=== PATIENT | female | born 1935 | race American Indian/Alaskan Native ===

== ENCOUNTER 2018-12-01 09:44 | Day surgery (SDC) | payer MEDICARE ==
[~2018-12-01 09:44] MED LIST: ANCEF/STERILE WATER 2 GM/20 ML 2 GM/20 ML SYRINGE IV NR
[2018-12-01] MEDS ORDERED: MARCAINE 0.5% INFILTRATI ONE (10:22)
[2018-12-01] MEDS ORDERED: NITROGLYCERIN SYRINGE 0 ML ONE (10:23)
[2018-12-01] MEDS ORDERED: NACL 0.9% 500 ML 0 ML ONE (10:23)
[2018-12-01] MEDS ORDERED: HEPARIN 10,000 UNITS/10 ML ONE (10:23)
[2018-12-01] MEDS ORDERED: SUBLIMAZE IV PRN (10:39)
[2018-12-01] MEDS ORDERED: ZOFRAN IV PRN (10:39)
--- NOTE | 2018-12-01 10:40 | Anesthesia Day of Surgery ---
Anesthesia Day of Surgery - Day of Surgery Patient Examined: Yes Patient H&P Reviewed: Yes Patient is NPO: Yes
--- NOTE | 2018-12-01 10:48 | Anesthesia Consultation ---
Anesthesia Consult and Med Hx Date of service: 12/01/18 - Pre-Operative Health Status ASA Pre-Surgery Classification: ASA3 Proposed Anesthetic Plan: General - Pulmonary Hx Smoking: Yes (Former smoker) - Cardiovascular System Hx Hypertension: Yes - Central Nervous System Hx Psychiatric Problems: No - Endocrine Hx Renal Disease: Yes Hx End Stage Renal Disease: Yes (Last HD Thursday) - Other Systems Hx Cancer: No
[2018-12-01 10:53] LABS: Red Blood Count TNR M/mm3 (3.65-5.03)
[2018-12-01 10:54] LABS: Basophils # (Auto) TNR K/mm3 (0.0-0.1); Basophils % (Auto) TNR % (0.0-1.8); Eosinophils # (Auto) TNR K/mm3 (0.0-0.4); Eosinophils % (Auto) TNR % (0.0-4.3); Hematocrit TNR % (30.3-42.9); Hemoglobin TNR gm/dl (10.1-14.3); Lymphocytes # (Auto) TNR K/mm3 (1.2-5.4); Lymphocytes % (Auto) TNR % (13.4-35.0); Mean Corpuscular HGB Conc TNR % (30-34); Mean Corpuscular Volume TNR fl (79-97); Monocytes # (Auto) TNR K/mm3 (0.0-0.8); Monocytes % (Auto) TNR % (0.0-7.3); Platelet Count TNR K/mm3 (140-440); Red Cell Distribution Width TNR % (13.2-15.2)
[2018-12-01] MEDS ORDERED: NACL 0.9% 1000 ML 1,000 ML IV SCH (11:00)
[2018-12-01 11:01] LABS: Calcium 9.7 mg/dL (8.4-10.2)
[2018-12-01 12:39] VITALS: BP 137/53
== END 2018-12-01 09:45 | disposition home or self-care (01) ==
LOC: OR 09:44
PROVIDERS: ATTEND Surgery Vascular Surgery
DX: T82.590A Other mechanical complication of surgically created arteriovenous fistula, initial encounter (principal); I12.0 Hypertensive chronic kidney disease with stage 5 chronic kidney disease or end stage renal disease; N18.6 End stage renal disease; Z53.8 Procedure and treatment not carried out for other reasons; Z79.82 Long term (current) use of aspirin; Z87.891 Personal history of nicotine dependence; Z79.899 Other long term (current) drug therapy; E78.00 Pure hypercholesterolemia, unspecified; Z99.2 Dependence on renal dialysis; Z98.890 Other specified postprocedural states; Y83.9 Surgical procedure, unspecified as the cause of abnormal reaction of the patient, or of later complication, without mention of misadventure at the time of the procedure; Y92.9 Unspecified place or not applicable
CPT/HCPCS: 36415; 80048; 82803; 85025; J7030; J0690; J1644; J7040

== ENCOUNTER 2018-12-14 10:15 | Day surgery (SDC) | payer MEDICARE ==
[~2018-12-14 10:15] MED LIST changes: -ANCEF/STERILE WATER 2 GM/20 ML 2 GM/20 ML SYRINGE IV NR; +BUPIVACAINE/PF (0.5%) 5 MG/1 ML 30 ML VIAL INFILTRATI ONE; +HEPARIN 10,000 UNITS/10 ML VIAL ONE; +PROTAMINE SULFATE 50 MG/5 ML INJ ONE; +SODIUM CHLORIDE 0.9% 250ML 0 ML ONE; +SODIUM CHLORIDE 0.9% 500 ML 500 ML ONE; +SODIUM CHLORIDE P/F VIAL 10 ML 10 ML ONE; +ceFAZolin/Water 2 GM/20 ML 2 GM/20 ML SYRINGE IV NR; +rifAMPin 600 MG VIAL ONE
[2018-12-14] MEDS ORDERED: SODIUM CHLORIDE 0.9% 1000 ML 1,000 ML ONE ×2 (11:04→11:36)
[2018-12-14] MEDS ORDERED: ONDANSETRON 4 MG/2 ML INJ IV PRN (11:36)
[2018-12-14] MEDS ORDERED: fentaNYL 100 MCG/2 ML INJ IV PRN (11:36)
--- NOTE | 2018-12-14 11:36 | Anesthesia Day of Surgery ---
Anesthesia Day of Surgery - Day of Surgery Patient Examined: Yes Patient H&P Reviewed: Yes Patient is NPO: Yes Beta Blockers: Yes
--- NOTE | 2018-12-14 11:39 | Anesthesia Consultation ---
Anesthesia Consult and Med Hx Date of service: 12/14/18 - Airway Anesthetic Teeth Evaluation: Good ROM Head & Neck: Adequate Mental/Hyoid Distance: Adequate Mallampati Class: Class II Intubation Access Assessment: Good - Pre-Operative Health Status ASA Pre-Surgery Classification: ASA3 Proposed Anesthetic Plan: General - Pulmonary Hx Smoking: Yes (Former smoker) - Cardiovascular System Hx Hypertension: Yes - Central Nervous System Hx Psychiatric Problems: No - Endocrine Hx Renal Disease: Yes Hx End Stage Renal Disease: Yes (HD yesterday) - Hematic Hx Anemia: Yes - Other Systems Hx Cancer: No
[2018-12-14] MEDS ORDERED: SODIUM CHLORIDE 0.9% 1000 ML 1,000 ML IV SCH (12:00)
[2018-12-14] MEDS ORDERED: PROPOFOL 200 MG/20 ML VIAL IV ONE ×2 (13:17→14:43)
[2018-12-14] MEDS ORDERED: fentaNYL 100 MCG/2 ML INJ ONE ×2 (13:17→14:36)
[2018-12-14] MEDS ORDERED: LIDOCAINE MPF (2%) 20 MG/1 ML VIAL 5 ML ONE (13:17)
[2018-12-14] MEDS ORDERED: rifAMPin 600 MG VIAL IV ONE (14:01)
[2018-12-14] MEDS ORDERED: SODIUM CHLORIDE 0.9% P/F 10 ML VIAL INFILTRATI ONE (14:01)
[2018-12-14] MEDS ORDERED: SODIUM CHLORIDE 0.9% 500 ML IVPB IV ONE ×2 (14:01)
[2018-12-14] MEDS ORDERED: HEPARIN 10,000 UNITS/10 ML VIAL IV ONE ×2 (14:01)
[2018-12-14] MEDS ORDERED: BUPIVACAINE/PF (0.5%) 5 MG/1 ML 30 ML VIAL INFILTRATI ONE (14:01)
[2018-12-14] MEDS ORDERED: HEPARIN 10,000 UNITS/10 ML VIAL ONE (14:15)
[2018-12-14] MEDS ORDERED: SODIUM CHLORIDE 0.9% 50 ML ONE (14:16)
[2018-12-14] MEDS ORDERED: SODIUM CHLORIDE 0.9% 100 ML ONE (14:16)
[2018-12-14] MEDS ORDERED: SODIUM CHLORIDE 0.9% 250ML 250 ML ONE (14:19)
--- NOTE | 2018-12-14 15:55 | Short Stay Summary ---
Short Stay Documentation Date of service: 12/14/18 Narrative H&P: See H&P - Allergies and Medications Current Medications: Allergies No Known Allergies Allergy (Unverified 12/09/18 10:47) Home Medications Medication Instructions Recorded Confirmed Last Taken Type Aspirin 81 mg PO DAILY 12/01/18 12/14/18 12/13/18 09:00 History Atorvastatin 40 mg PO DAILY 12/01/18 12/14/18 12/14/18 12:05 History Carvedilol [Coreg] 12.5 mg PO BID 12/01/18 12/14/18 12/14/18 12:05 History Folic Acid 400 mcg PO DAILY 12/01/18 12/14/18 12/13/18 09:00 History Lisinopril [Zestril TAB] 40 mg PO BID 12/01/18 12/14/18 12/14/18 12:05 History Megestrol 40 mg PO DAILY 12/01/18 12/14/18 12/13/18 09:00 History NIFEdipine [Nifedipine ER] 90 mg PO DAILY 12/01/18 12/14/18 12/13/18 09:00 History cloNIDine-TTS PATCH [Catapres-Tts 0.3 mg PO DAILY 12/01/18 12/14/18 12/14/18 12:05 History 0.3mg Patch] Active Medications Fentanyl (Sublimaze) 50 mcg IV Q5MIN PRN PRN Reason: Pain , Severe (7-10) Stop: 12/14/18 23:59 Cefazolin Sodium (Ancef/Sterile Water 2 Gm/20 Ml) 2 gm in 20 mls @ 80 mls/hr IV PREOP NR; Protocol Stop: 12/14/18 23:59 Sodium Chloride (Nacl 0.9% 1000 Ml) 1,000 mls @ 42 mls/hr IV DIRECT SERJIO Ondansetron HCl (Zofran) 4 mg IV ONCE PRN PRN Reason: Nausea And Vomiting - Brief post op/procedure progress note Date of procedure: 12/14/18 Pre-op diagnosis: Complications of Dialysis Access Post-op diagnosis: same Procedure: Revision of Left Arm Arteriovenous Fistula with Interposition 7 mm Bovine Artegraft Anesthesia: other (LMA) Surgeon: JOSELO CABRAL Estimated blood loss: 50-100ml Pathology: list (left arm arteriovenous fistula pseudoaneurysm) Specimen disposition: to lab Condition: stable - Disposition Condition at discharge: Good Disposition: DC-01 TO HOME OR SELFCARE Short Stay Discharge Plan Activity: other (no strenuous activity with left arm) Wound: open to air, keep clean and dry, other (okay to wash the wound with soap and water but do not soak in water) Follow up with: JOSELO CABRAL MD [Staff Physician] - 14 Days Prescriptions: HYDROcodone/APAP 7.5-325 [[place] 7.5/325] 1 each PO Q6HR PRN #40 tablet PRN Reason: Pain
--- NOTE | 2018-12-14 15:57 | Operative Report ---
Operative Report Operative Report: Date of Procedure: 12/14/2018 Pre-operative Diagnosis: Complications of Dialysis Access Post-operative Diagnosis: Same Procedure(s): 1. Revision of Left Arm Arteriovenous Fistula with Interposition 7 mm Bovine Artegraft Surgeon: Gordo Larson M.D. Field Coil Winder: None Anesthesia: LMA EBL: 100 ml Counts: Correct Complications: None Condition: Stable Findings: Successful revision of left arm arteriovenous fistula with palpable thrill at the completion of the case. Specimen: Left arm arteriovenous fistula pseudoaneurysm sent to pathology. Indication: The patient is an 83-year-old female with a history of end-stage renal disease who is on hemodialysis through a left arm arteriovenous fistula. 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 She had a fistulogram with angioplasty to relieve the pressure on the pseudoaneurysms and then had placement of a permacath in the outpatient setting. She now presents for revision with an interposition graft to remove the areas of pseudoaneurysm to prevent hemorrhage from the areas of ulceration. She was given the risk, benefits, and alternative procedures and consented to the procedure. Description of Procedure: The patient was brought to the operating room and laid in supine position. After timeout was performed her left arm was prepped and draped in normal sterile fashion. A longitudinal incision was just medial to the fistula extending from the normal caliber portion of the venous outflow of the fistula extending along the pseudoaneurysms to the normal inflow portion of the fistula. Sharp dissection was then used to carry the incision down to the fistula along the arterial inflow and this was controlled with a vessel loop. Sharp dissection was then used to carry the incision down to the venous outflow and this was dissected circumferentially and controlled with a vessel loop. The pseudoaneurysms were then dissected circumferentially along the entire length and once they were dissected free the outflow and inflow of the fistula was controlled with angled DeBakey clamps and the pseudoaneurysms were transected and passed off the specimen. I then used the Pat-Karina tunneler to tunnel lateral to the incision and pulled a 7 mm bovine Artegraft through the tunnel and infused with heparinized saline to ensure that it had not kinked or twisted. I beveled the graft and then sewed it to the arterial inflow of the fistula using two 6-0 Prolenes in running fashion. I clamped the outflow of the graft and then removed the clamp from the arterial inflow of the fistula and allow flow into the graft and check the suture line for leaks. Quick clot was placed on the suture line to achieve hemostasis. I then cut the graft in length and beveled the end and then placed a DeBakey clamp on the arterial inflow of the graft and then created an end-to-end anastomosis with the venous outflow of the fistula using two 6-0 Prolenes in running fashion. Prior to completing the anastomosis I flashed the outflow of the graft as well as the inflow of the graft and then flushed the graft with heparinized saline. I completed the anastomosis and then released all clamps allowing flow through the graft which had a palpable thrill. Hemostasis within the wound was achieved with a combination of quick clot and Vitaly. Once hemostasis was achieved I resected the redundant skin to include the ulcerated area and anesthetized the skin with 0.5% Marcaine. The skin was then closed in 2 layers using a 3-0 Vicryl in running fashion in the deep dermal layer and a 4-0 Monocryl in running fashion the subcuticular layer and then dressed with Dermabond. The patient tolerated the procedure well. All sponge, needle, and instrument counts were correct. The patient was transported to the recovery area in stable condition.
[2018-12-14 16:34] VITALS: BP 206/107
--- NOTE | 2018-12-14 18:59 | Post Anesthesia Evaluation ---
- Post Anesthesia Evaluation Patient Participated: Yes Airway Patent: Yes Stable Respiratory Function: Yes Nausea/Vomiting: No Temp > 96.8F: Yes Pain Manageable: Yes Adequeate Hydration: Yes Anesthesia Complications: No Block Receding Appropriately: Not Applicable Patient on Ventilator: No
== END 2018-12-14 10:16 | disposition home or self-care (01) ==
LOC: OR 10:15
PROVIDERS: ATTEND Surgery Vascular Surgery
DX: T82.590A Other mechanical complication of surgically created arteriovenous fistula, initial encounter (principal); I12.0 Hypertensive chronic kidney disease with stage 5 chronic kidney disease or end stage renal disease; N18.6 End stage renal disease; E78.00 Pure hypercholesterolemia, unspecified; Z87.891 Personal history of nicotine dependence; Z99.2 Dependence on renal dialysis; Z98.890 Other specified postprocedural states; Z79.82 Long term (current) use of aspirin; Z79.899 Other long term (current) drug therapy; Z86.2 Personal history of diseases of the blood and blood-forming organs and certain disorders involving the immune mechanism; Y83.8 Other surgical procedures as the cause of abnormal reaction of the patient, or of later complication, without mention of misadventure at the time of the procedure
CPT/HCPCS: 36832; 82803; 88304; C1768; J0690; J1644; J2704; J3010; J3490; J7030; J7040; J7050; J2720